=== PATIENT | male | born 1980 | race Two or more races ===

== ENCOUNTER 2025-03-05 08:00 | Day surgery (SDC) | payer MEDICARE, MEDICAID, SELFPAY ==
[2025-03-03 10:39] VITALS: BMI 28.0
[2025-03-03 11:34] LABS: Basophils # (Auto) 0.0 Thou/mm3 (0.0-0.2); Basophils % (Auto) 0 % (0-2.5); Eosinophils # (Auto) 0.1 Thou/mm3 (0.0-0.5); Eosinophils % (Auto) 2 % (0-10); Hematocrit 37.0 % (41.0-53.0); Hemoglobin 12.6 g/dL (13.5-16.0); Immature Granulocytes Auto 0.03 Thou/mm3 (0.00-0.00); Lymphocytes # (Auto) 0.5 Thou/mm3 (1.0-4.8); Lymphocytes % (Auto) 7 % (10-50); Mean Corpuscular HGB Conc 34.1 g/dl (31.0-37.0); Mean Corpuscular Hemoglobin 30.7 pg (25.0-35.0); Mean Corpuscular Volume 90 fL (80-100); Monocytes # (Auto) 0.5 Thou/mm3 (0.0-0.8); Monocytes % (Auto) 7 % (0-12); Neutrophils # (Auto) 5.7 Thou/mm3 (1.8-7.7); Neutrophils % (Auto) 83 % (37-80); Nucleated Red Blood Cell # 0.00 Thou/mm3 (0.00-0.00); Nucleated Red Blood Cell % 0 /100 WBC (0); Platelet Count 161 Thou/mm3 (140-440); RDW Standard Deviation 46.4 fL (35.1-43.9); Red Blood Count 4.10 Miln/mm3 (4.50-5.90); White Blood Count 6.9 Thou/mm3 (3.8-10.6)
[2025-03-03 11:46] LABS: INR 1.1 (0.9-1.3); Partial Thromboplastin Time 28.6 Seconds (22.0-36.0); Prothrombin Time 11.7 Seconds (9.0-12.2)
[2025-03-03 11:48] LABS: Alanine Aminotransferase 22 U/L (10-49); Albumin, Serum 4.7 gm/dL (3.5-5.0); Albumin/Globulin Ratio 1.6 (1.2-2.2); Alkaline Phosphatase 134 U/L (46-116); Anion Gap 14 (7-16); Aspartate Amino Transferase 15 U/L (0-34); BUN/Creatinine Ratio 4 Ratio (12-20); Bilirubin,Total 1.7 mg/dL (0.3-1.2); Blood Urea Nitrogen 31 mg/dL (9-23); Calcium 9.9 mg/dL (8.3-10.6); Calcium (Corrected) 9.9 mg/dL (8.5-10.1); Carbon Dioxide 27.2 mMol/L (20.0-31.0); Chloride 97 mMol/L (98-107); Creatinine (Component) 7.8 mg/dL (0.6-1.3); Estimated Creatinine Clearance 14.5 mL/min (>60); Globulin 3.0 gm/dL (2.3-3.5); Glucose 159 mg/dL (74-106); Osmolality,Calculated 285 (275-295); Potassium 4.6 mMol/L (3.4-5.1); Sodium 138 mMol/L (136-145); Total Protein 7.7 gm/dL (5.7-8.2); eGFR 8 See Note
--- NOTE | 2025-03-04 13:52 | SUR.PREOP ---
Pt notified to come in at 0800 tomorrow.
--- NOTE | 2025-03-04 14:29 | SUR.PREOP ---
second call to Dr Steve for cardiac records, stated will fax them. Cardiac history and general history reviewed wtih Dr Gomez.
[2025-03-05] VITALS (8 sets, daily range): BP systolic 128–137; BP diastolic 70–78; PULSE 60–65; RESP 15–20; TEMP 36.8–36.9; O2SAT 92–95; BMI 28.0
[2025-03-05 08:48] LABS: Potassium 4.7 mMol/L (3.4-5.1)
--- NOTE | 2025-03-05 13:11 | PD.SUROPNT ---
Date of Procedure 03/05/25 Pre Op Diagnosis End-stage renal disease and the need for permanent dialysis access Post Op Diagnosis Same as pre-op diagnosis Procedure Revision of brachiobasilic arteriovenous fistula left upper extremity via the basilic transposition procedure Findings There was excellent flow in the fistula Procedure Description With the patient supine under adequate general esthesia left upper extremity sterilely prepped and draped. Timeout was performed. An incision was then made on the medial aspect of the left arm from the axilla to the elbow. The electrocautery was used to this dissect through the subcutaneous tissues and the basilic vein was free of some surrounding tissues with blunt and sharp dissection and the use of the harmonic focus scalpel. All branches were ligated with 3-0 silk ties or hemoclips. After the vein was freed from 1 incision to the other a lateral skin flap was created with electrocautery. 3-0 Vicryl was then used to reapproximate the subcutaneous tissues beneath the vein then 4-0 Monocryl was used to reapproximate the skin. A Prineo dressing was applied. The patient woke well from anesthesia was moved to recovery in stable condition Anesthesia other (Laryngeal mask anesthesia) Pathology / specimen None Estimated Blood Loss 30 Disposition PACU Surgeon Spencer Sanders MD Surgical Staff Operation Date: 03/05/25 13:15 Case Staff Anesthesiologist: Onel Gomez RNinside b2b sales: Trisha Garza
--- NOTE | 2025-03-05 13:40 | SUR.PHASEI ---
1340 Patient arrived to recovery resting comfortably in [facility], on oxygen 10L via oxy mask with an nasal airway in place, breathing unlabored, vital signs stable, dressing intact to left arm; prineo, fluffs, kerlix roll, silk tape, no bleeding noted, both thrill and bruit present to AV-fistula, bilateral dorsalis pedis pulses present when palpated, report received from Maximino BYRD and Dr. Gomez
--- NOTE | 2025-03-05 15:02 | SUR.PHASEII ---
1502 Patient meets discharge criteria from recovery, awake and alert, patient on 3L via nasal cannula connected to his own oxygen tank, this is baseline oxygen therapy level for patient, breathing unlabored, vital signs stable, denies pain, dressing intact; no bleeding noted, ate a jello and drinking fluids; denies nausea, assisted with dressing into his clothing by this video games storywriter, discharge instructions given to patient and patients with being on speaker phone, patient signed discharge instructions at car side, patient given all his belongings prior to discharge, transported via wheelchair and left in a private vehicle.
== END 2025-03-05 15:02 | disposition home or self-care (01) ==
PROVIDERS: Anesthesiology; PCP Internal Medicine; Referring Provider Surgery Vascular Surgery; Visit Provider Surgery Vascular Surgery
PROC: (CPT 36832; principal; 2025-03-05 13:00)
DX: N18.6 End stage renal disease (principal)
CPT/HCPCS: 36832; 36415; 80053; 84132; 85025; 85610; 85730; A4649; J0131; J0690; J1100; J1644; J2250; J2371; J2440; J2704; J2710; J2765; J3010; J3490; A9270; J0665; J1596